=== PATIENT | male | born 1940 | race Caucasian/White ===

== ENCOUNTER 2016-08-26 09:22 | Inpatient (IN) | payer MEDICARE ==
[2016-08-26 10:34] VITALS: BP 150/100
[2016-08-26] MEDS ORDERED: Albuterol/Ipratropium Neb 3 ML AERS HHN PRN (11:45)
[2016-08-26] MEDS: INSULIN ASPART, RECOMBINANT 100 UNITS/ML SUBQ SCH ×2 (14:39→21:02)
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
[2016-08-27 07:18] LABS: HEMATOCRIT 44.8 % (39.0-49.0); HEMOGLOBIN 15.2 gm/dL (12.6-17.4); MEAN CELL VOLUME 85.5 fl (80-99); MEAN CORPUSCULAR HEMOGLOBIN 28.9 pg (27.0-31.0); MEAN CORPUSCULAR HGB CONC 33.8 pg (28.0-36.0); MEAN PLATELET VOLUME 9.3 fl; PLATELET COUNT 154 Th/cmm (150-400); RED BLOOD COUNT 5.25 Mil/cmm (3.80-5.80); RED CELL DISTRIBUTION WIDTH 17.1 % (11.5-20.0); WHITE BLOOD COUNT 5.6 Th/cmm (4.8-10.8)
[2016-08-27 07:40] LABS: ALB/GLOB RATIO 1.2 (1.0-1.8); ALKALINE PHOSPHATASE 81 U/L (34-104); ANION GAP 7.8 (7.0-16.0); BILIRUBIN,TOTAL 0.6 mg/dL (0.3-1.0); BUN - UREA NITROGEN 23 mg/dL (7-25); BUN/CREATININE RATIO 17.7; CALCIUM SERUM 9.2 mg/dL (8.6-10.3); CARBON DIOXIDE 23.5 mEq/L (21.0-31.0); CHLORIDE 108 mEq/L (98-107); CHOLESTEROL 150 mg/dL (<200); CREATININE - SERUM 1.3 mg/dL (0.7-1.3); GLUCOSE 125 mg/dL (70-105); POTASSIUM SERUM 4.3 mEq/L (3.5-5.1); SGOT 19 U/L (13-39); SGPT/ALT 14 U/L (7-52); SODIUM SERUM 135 mEq/L (136-145); TRIGLYCERIDES 185 mg/dL (<150); URIC ACID 7.7 mg/dL (4.4-7.6)
[2016-08-27 08:51] LABS: BAND NEUTROPHILE 1 % (0-10); EOSINOPHIL 2 % (0-5); NEUTROPHILS 85 % (40-80); PLATELET ESTIMATE ADEQUATE (NORMAL); PLATELET MORPHOLOGY NORMAL (NORMAL); TOTAL CELLS COUNTED 100
[2016-08-27] MEDS: INSULIN ASPART, RECOMBINANT 100 UNITS/ML SUBQ SCH ×3 (09:26→21:09)
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
[2016-08-28] MEDS: INSULIN ASPART, RECOMBINANT 100 UNITS/ML SUBQ SCH ×3 (09:49→21:38)
[2016-08-28] MEDS: Atorvastatin Calcium 10 MG TAB PO SCH (09:54)
--- NOTE | 2016-08-29 01:53 | Progress Notes ---
PSYCHIATRIC PROGRESS NOTE TIME PATIENT SEEN: 10:00 a.m. SUBJECTIVE: Staff was spoken to. The patient is interviewed. Mood is noted to be irritable. Affect is constricted. The patient is stating that his ____ him and he should not be in here. The patient has been still paranoid and is accusing that she has been trying to put some poison in his food. The patient is very angry and upset. Coping skills are noted to be very poor. The patient is placed on Seroquel and is able to tolerate the medication. ASSESSMENT: The patient is still psychotic. PLAN: To continue the patient with the current medications and followup. JOB# [id number]
[2016-08-29 06:50] LABS: INR 1.09 (0.5-1.4); PROTHROMBIN TIME (TEST) 10.9 SECONDS (9.5-11.5)
[2016-08-29] MEDS: Atorvastatin Calcium 10 MG TAB PO SCH (09:04)
[2016-08-29] MEDS: INSULIN ASPART, RECOMBINANT 100 UNITS/ML SUBQ SCH ×3 (09:06→20:51)
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
[2016-08-30 06:54] LABS: INR 1.18 (0.5-1.4); PROTHROMBIN TIME (TEST) 11.8 SECONDS (9.5-11.5)
[2016-08-30] MEDS: Atorvastatin Calcium 10 MG TAB PO SCH (08:29)
[2016-08-30] MEDS: INSULIN ASPART, RECOMBINANT 100 UNITS/ML SUBQ SCH ×3 (09:53→20:57)
--- NOTE | 2016-08-31 01:48 | Progress Notes ---
PSYCHIATRIC PROGRESS NOTE TIME PATIENT SEEN: 09:30 a.m. SUBJECTIVE: Staff was spoken to. The patient is interviewed. Mood is noted to be irritable. Affect is constricted. The patient has paranoid delusions, but denies any command hallucinations today. The patient is isolative and withdrawn. The patient is stating that he needs to get back. The patient is wondering whether his daughter is going to be coming to visit him or not. ASSESSMENT: The patient is still paranoid and able to tolerate the medication. PLAN: To continue the patient with the current medications and follow. JOB# [id number]
[2016-08-31 08:42] LABS: INR 1.5 (0.5-1.4); PROTHROMBIN TIME (TEST) 15.2 SECONDS (9.5-11.5)
[2016-08-31] MEDS: Atorvastatin Calcium 10 MG TAB PO SCH (08:42)
[2016-08-31] MEDS: INSULIN ASPART, RECOMBINANT 100 UNITS/ML SUBQ SCH ×3 (09:00→21:09)
[2016-09-01 07:09] LABS: MEAN CELL VOLUME 85.5 fl (80-99); MEAN CORPUSCULAR HEMOGLOBIN 29.3 pg (27.0-31.0); MEAN CORPUSCULAR HGB CONC 34.3 pg (28.0-36.0); PLATELET COUNT 143 Th/cmm (150-400); RED BLOOD COUNT 4.48 Mil/cmm (3.80-5.80); RED CELL DISTRIBUTION WIDTH 16.3 % (11.5-20.0)
[2016-09-01 07:13] LABS: HEMATOCRIT 38.3 % (39.0-49.0); HEMOGLOBIN 13.1 gm/dL (12.6-17.4)
[2016-09-01 07:24] LABS: INR 1.77 (0.5-1.4); PROTHROMBIN TIME (TEST) 18.2 SECONDS (9.5-11.5)
[2016-09-01] MEDS: Atorvastatin Calcium 10 MG TAB PO SCH (09:39)
[2016-09-01] MEDS: INSULIN ASPART, RECOMBINANT 100 UNITS/ML SUBQ SCH ×3 (09:46→16:22)
[2016-09-01 09:49] LABS: BAND NEUTROPHILE 2 % (0-10); EOSINOPHIL 2 % (0-5); NEUTROPHILS 77 % (40-80); PLATELET ESTIMATE DECREASED PLATELETS (NORMAL); PLATELET MORPHOLOGY GIANT PLATELETS SEEN (NORMAL); TOTAL CELLS COUNTED 100
--- NOTE | 2016-09-01 23:04 | Progress Notes ---
PSYCHIATRIC PROGRESS NOTE TIME PATIENT SEEN: 08:30 a.m. SUBJECTIVE: Staff was spoken to. The patient is interviewed. Mood is noted to be irritable. Affect is constricted. The patient is note to be very agitated and frustrated. The patient had to be offered medications last night. The patient has no insight into his illness. Coping skills are noted to be extremely poor. The patient is confused and at the same time has been worrying about his . The patient's whereabouts could not be verified. No side effects to medications are noted at this time. ASSESSMENT: The patient is still psychotic. PLAN: To continue the patient with the supportive therapy. I encouraged the patient to verbalize the concerns rather than to act out. JOB# [id number]
[2016-09-02] MEDS: Atorvastatin Calcium 10 MG TAB PO SCH (08:28)
[2016-09-02] MEDS: INSULIN ASPART, RECOMBINANT 100 UNITS/ML SUBQ SCH ×3 (09:00→16:56)
[2016-09-02 09:19] LABS: INR 1.75 (0.5-1.4); PROTHROMBIN TIME (TEST) 17.9 SECONDS (9.5-11.5)
[2016-09-03] MEDS: Atorvastatin Calcium 10 MG TAB PO SCH (09:33)
[2016-09-03] MEDS: INSULIN ASPART, RECOMBINANT 100 UNITS/ML SUBQ SCH ×3 (09:42→17:55)
--- NOTE | 2016-09-03 15:30 | Progress Notes ---
PSYCHIATRIC PROGRESS NOTE TIME PATIENT SEEN: 5:00 p.m. SUBJECTIVE: Staff was spoken to. The patient is interviewed. Mood is noted to be irritable and anxious. Affect is constricted. The patient has been constantly asking about returning home. The patient is worrying about his who is taken to a different institution. Coping skills are noted to be very poor. The patient is getting easily agitated with the staff members. No side effects to the medications are noted at this time. ASSESSMENT: The patient is still psychotic and awaiting placement. PLAN: To continue the patient with supportive therapy. I encouraged the patient to verbalize the concerns rather than to act out. JOB# [id number]
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
[2016-09-04 08:29] LABS: HEMOGLOBIN 14.6 gm/dL (12.6-17.4); MEAN CORPUSCULAR HEMOGLOBIN 28.6 pg (27.0-31.0); MEAN CORPUSCULAR HGB CONC 33.7 pg (28.0-36.0); MEAN PLATELET VOLUME 9.9 fl; PLATELET COUNT 166 Th/cmm (150-400); RED BLOOD COUNT 5.11 Mil/cmm (3.80-5.80); RED CELL DISTRIBUTION WIDTH 16.2 % (11.5-20.0)
[2016-09-04 08:36] LABS: HEMATOCRIT 43.4 % (39.0-49.0); WHITE BLOOD COUNT 8.6 Th/cmm (4.8-10.8)
[2016-09-04 08:40] LABS: INR 2.1 (0.5-1.4); PROTHROMBIN TIME (TEST) 21.8 SECONDS (9.5-11.5)
[2016-09-04] MEDS: INSULIN ASPART, RECOMBINANT 100 UNITS/ML SUBQ SCH ×3 (08:45→16:59)
[2016-09-04] MEDS: Atorvastatin Calcium 10 MG TAB PO SCH (09:12)
[2016-09-04 09:17] LABS: BAND NEUTROPHILE 2 % (0-10); BASOPHIL 1 % (0-3); EOSINOPHIL 4 % (0-5); NEUTROPHILS 76 % (40-80); TOTAL CELLS COUNTED 100
[2016-09-04 09:19] LABS: PLATELET ESTIMATE ADEQUATE (NORMAL); PLATELET MORPHOLOGY PLATELET CLUMPS SEEN (NORMAL)
--- NOTE | 2016-09-04 20:21 | Progress Notes ---
PSYCHIATRIC PROGRESS NOTE TIME PATIENT SEEN: 9:45 a.m. SUBJECTIVE: Staff was spoken to. The patient is interviewed. Mood is noted to be irritable. Affect is constricted. Coping skills are noted to be poor. Sleep and appetite are also noted to be poor. The patient has been having difficult time to cope with the stress. No side effects to the medications are noted at this time. ASSESSMENT: The patient is still impulsive and not able to contract for safety. PLAN: To continue the patient with supportive therapy. I encouraged the patient to verbalize the concerns rather than to act out. JOB# [id number]
[2016-09-05] MEDS: INSULIN ASPART, RECOMBINANT 100 UNITS/ML SUBQ SCH ×2 (08:03→11:56)
[2016-09-05 08:49] LABS: INR 2.45 (0.5-1.4); PROTHROMBIN TIME (TEST) 25.6 SECONDS (9.5-11.5)
[2016-09-05] MEDS: Atorvastatin Calcium 10 MG TAB PO SCH (09:56)
--- NOTE | 2016-09-05 19:37 | Progress Notes ---
PSYCHIATRIC PROGRESS NOTE TIME PATIENT SEEN: 8:30 a.m. SUBJECTIVE: Staff was spoken to. The patient is interviewed. Mood is noted to be irritable. Affect is constricted. The patient is stating that he has been in here for no reason and needs to be out. Coping skills are noted to be very poor at this time. Sleep and appetite are also noted to be very poor. The patient has been having difficult time to cope with the stress. We are not able to locate the patient's ____ and it is also becoming difficult to find where the patient has been living . Possibly, the patient is going to be placed and from thereon, the patient is going to be helped with the relocation to his place. At this time, the patient continues to be paranoid and has been able to tolerate the medication. PLAN: To continue the patient with the current medications and follow up. JOB# [id number]
[2016-09-06 08:27] LABS: INR 2.63 (0.5-1.4); PROTHROMBIN TIME (TEST) 27.7 SECONDS (9.5-11.5)
[2016-09-06] MEDS: Atorvastatin Calcium 10 MG TAB PO SCH (08:30)
[2016-09-06] MEDS: INSULIN ASPART, RECOMBINANT 100 UNITS/ML SUBQ SCH ×2 (16:30→19:29)
--- NOTE | 2016-09-07 00:52 | Progress Notes ---
PSYCHIATRIC PROGRESS NOTE TIME PATIENT SEEN: 7:00 a.m. SUBJECTIVE: Staff was spoken to. The patient is interviewed. Mood is noted to be anxious. The patient is getting easily frustrated. Insight and judgment at this time are noted to be still impaired. Impulse control seems to be improving. No side effects to the medications are noted. The patient is mainly frustrated that he is not able to locate his and he has to go back to his place. The patient ____ been given the [facility] the place with the [facility] and we are not able to verify anything. order manager has been mentioning that possibly patient is going to be placed in a [facility] facility close by where he lives and the [facility] can work with regards to his placement later. ASSESSMENT: The patient is still paranoid. PLAN: To continue the patient with the current medications and work with the patient with the placement. JOB# [id number]
[2016-09-07] MEDS: Atorvastatin Calcium 10 MG TAB PO SCH (08:15)
[2016-09-07] MEDS: INSULIN ASPART, RECOMBINANT 100 UNITS/ML SUBQ SCH ×3 (09:16→17:05)
[2016-09-07 11:31] LABS: INR 2.23 (0.5-1.4); PROTHROMBIN TIME (TEST) 23.3 SECONDS (9.5-11.5)
--- NOTE | 2016-09-08 00:55 | Progress Notes ---
TIME PATIENT SEEN: 09:00 a.m. SUBJECTIVE: Staff was spoken to. The patient is interviewed. Mood is noted to be irritable. Affect is constricted. The patient is getting frustrated for being in here and stating that he needs to figure it out what is happening with his . No side effects to the medications are noted at this time. ASSESSMENT: The patient is still impulsive. The patient is not able to contact for safety. PLAN: To continue the patient with the supportive therapy. I encouraged the patient to verbalize the concerns rather than to act out. licensed club manager has been spoken to and they are looking for some placement close to where he lives. JOB# [id number]
[2016-09-08] MEDS: Atorvastatin Calcium 10 MG TAB PO SCH (08:33)
[2016-09-08] MEDS: INSULIN ASPART, RECOMBINANT 100 UNITS/ML SUBQ SCH ×3 (08:33→17:36)
[2016-09-08 08:50] LABS: INR 2.07 (0.5-1.4); PROTHROMBIN TIME (TEST) 21.5 SECONDS (9.5-11.5)
[2016-09-09] MEDS: Atorvastatin Calcium 10 MG TAB PO SCH (08:17)
[2016-09-09] MEDS: INSULIN ASPART, RECOMBINANT 100 UNITS/ML SUBQ SCH ×3 (08:37→16:28)
--- NOTE | 2016-09-09 18:23 | Progress Notes ---
PSYCHIATRIC PROGRESS NOTE TIME PATIENT SEEN: 1:15 p.m. SUBJECTIVE: Staff was spoken to. The patient is interviewed. Mood is noted to be irritable. Affect is constricted. Coping skills are noted to be still poor. The patient has no place to return to. The patient is paranoid, but the patient at the same time has been mentioning that he is worrying about his 's whereabouts. PLAN: The patient's correctional case manager has been informed to look for placement for this patient. Possibly if the placement available, the patient is going to be discharged as of tomorrow. JOB# [id number]
--- NOTE | 2016-09-10 03:01 | Progress Notes ---
TIME PATIENT SEEN: 9:15 a.m. SUBJECTIVE: Staff was spoken to. The patient is interviewed. Mood is noted to be anxious. The patient is reporting that he has been doing fairly well and would like to continue treatment on an outpatient basis. Insight and judgment at this time are noted to be improving. Impulse control seems to be fair. No side effects to the medications are noted. The patient has been awaiting placement. customer project manager has been mentioning that she has referred the patient's packet to a couple of places and is awaiting a call back from them. ASSESSMENT: The patient is stabilizing. PLAN: To discharge the patient whenever the placement is available. JOB# [id number]
[2016-09-10 08:15] LABS: % BASOPHILS 0.7 % (0.0-2.0); % EOSINOPHILS 4.4 % (0.0-5.0); % LYMPHOCYTES 5.2 % (20.0-50.0); % MONOCYTES 9.8 % (2.0-10.0); % NEUTROPHILS 79.9 % (40.0-80.0); HEMATOCRIT 42.1 % (39.0-49.0); HEMOGLOBIN 14.3 gm/dL (12.6-17.4); MEAN CELL VOLUME 84.9 fl (80-99); MEAN CORPUSCULAR HEMOGLOBIN 28.8 pg (27.0-31.0); MEAN CORPUSCULAR HGB CONC 33.9 pg (28.0-36.0); MEAN PLATELET VOLUME 9.5 fl; NEUTROPHILE ABSOLUTE 5.7 Th/cmm (1.8-8.0); PLATELET COUNT 196 Th/cmm (150-400); RED BLOOD COUNT 4.96 Mil/cmm (3.80-5.80); WHITE BLOOD COUNT 7.1 Th/cmm (4.8-10.8)
[2016-09-10] MEDS: Atorvastatin Calcium 10 MG TAB PO SCH (08:15)
[2016-09-10 08:43] LABS: INR 1.91 (0.5-1.4); PROTHROMBIN TIME (TEST) 19.7 SECONDS (9.5-11.5)
[2016-09-10] MEDS: INSULIN ASPART, RECOMBINANT 100 UNITS/ML SUBQ SCH ×2 (08:50→12:40)
--- NOTE | 2016-09-11 03:23 | Progress Notes ---
PSYCHIATRIC PROGRESS NOTE TIME PATIENT SEEN: 10:15 a.m. SUBJECTIVE: Staff was spoken to. The patient is interviewed. Mood is noted to be anxious. Affect is appropriate. Not suicidal or homicidal. Coping skills are noted to be improving. Sleep and appetite are also noted to be fair. The patient is stating that he is worrying about his belongings and his . The patient is being placed in ____ his residence and he has been advised to contact the [facility] with regards to his belongings and then the whereabouts of his . location manager has been able to forward the information to the placement. JOB# [id number]
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
== END 2016-09-10 13:45 | DRG 884 ==
LOC: GERO 09:22
PROVIDERS: ADMIT Psychiatry & Neurology Psychiatry; ATTEND Psychiatry & Neurology Psychiatry
DX: F03.91 Unspecified dementia, unspecified severity, with behavioral disturbance (principal); I13.2 Hypertensive heart and chronic kidney disease with heart failure and with stage 5 chronic kidney disease, or end stage renal disease; J84.10 Pulmonary fibrosis, unspecified; I42.9 Cardiomyopathy, unspecified; I48.2 Chronic atrial fibrillation; S01.01XA Laceration without foreign body of scalp, initial encounter; S00.03XA Contusion of scalp, initial encounter; I50.22 Chronic systolic (congestive) heart failure; I25.10 Atherosclerotic heart disease of native coronary artery without angina pectoris; E11.319 Type 2 diabetes mellitus with unspecified diabetic retinopathy without macular edema; M19.90 Unspecified osteoarthritis, unspecified site; F29 Unspecified psychosis not due to a substance or known physiological condition; N18.3 Chronic kidney disease, stage 3 (moderate); I35.1 Nonrheumatic aortic (valve) insufficiency; Z95.0 Presence of cardiac pacemaker; Z85.51 Personal history of malignant neoplasm of bladder; Z98.49 Cataract extraction status, unspecified eye
CPT/HCPCS: 36415-UA; 80053-TC; 80061-TC; 82948-90; 83036-90; 84443-TC; 84550-TC; 85007-TC; 85025-TC; 85027-TC; 85610-TC; 86592-TC; 90899; 93005; 94760; G0410; J1815; Z7610